=== PATIENT | female | born 1945 | race Two or more races ===

== ENCOUNTER 2022-10-17 21:04 | Emergency (ER) | payer SELFPAY ==
[~2022-10-17] VITALS: Ht 160 cm; Wt 113.4 kg
[2022-10-17 22:49] LABS: HEMATOCRIT 39.4 % (31.2-41.9); MEAN CORPUSCULAR HEMOGLOBIN 29.7 uug (24.7-32.8); MEAN CORPUSCULAR VOLUME 88.5 fL (75.5-95.3); PLATELET COUNT (AUTO) 230 K/uL (179-408)
[2022-10-17 22:59] LABS: CREATININE 1.1 mg/dL (0.6-1.3); POTASSIUM 3.2 mmol/L (3.5-5.1)
[2022-10-17] MEDS ORDERED: POTASSIUM BICARBONATE/CIT AC 25 MEQ TABLET.EFF PO ONE (23:15)
[2022-10-17] MEDS ORDERED: POTASSIUM BICARBONATE/CIT AC 25 MEQ TABLET.EFF ONE (23:32)
[2022-10-17] MEDS ORDERED: MAGNESIUM SULFATE/D5W 300 ML ONE (23:32)
[2022-10-17] MEDS: MAGNESIUM SULFATE/D5W 100 ML IV SCH (23:40)
[2022-10-18] MEDS ORDERED: HYDR-3980 PO (00:06)
[2022-10-18] MEDS: MAGNESIUM SULFATE/D5W 100 ML IV SCH ×2 (00:21→00:59)
--- NOTE | 2022-10-18 00:42 | NUR ---
All 3 grams of Magnesium have been infused and completed via IV LT AC.
--- NOTE | 2022-10-18 00:50 | NUR ---
Patient discharged to home in stable condition. Written and verbal after care instructions given. Patient verbalizes understanding of instructions. Stressed follow up or return to ER for worsening s/s. Patient walked out with steady gait accompainied by daughter.
[2022-10-18 01:04] VITALS: BP 120/87; TEMP 97.5; O2SAT 98
== END 2022-10-18 00:58 | disposition home or self-care (01) ==
LOC: ER 21:04
DX: S09.90XA Unspecified injury of head, initial encounter (principal); E11.9 Type 2 diabetes mellitus without complications; E87.6 Hypokalemia; E83.42 Hypomagnesemia; M25.50 Pain in unspecified joint; F17.210 Nicotine dependence, cigarettes, uncomplicated; Z88.0 Allergy status to penicillin; Z88.5 Allergy status to narcotic agent; Z79.2 Long term (current) use of antibiotics; W18.39XA Other fall on same level, initial encounter; Y93.89 Activity, other specified; Y92.89 Other specified places as the place of occurrence of the external cause; Y99.8 Other external cause status
CPT/HCPCS: 99285; 70450; 96365; 96366; 80048; 83735; 85025; 36415; 72125; J3475; A4663

== ENCOUNTER 2024-02-01 19:25 | Emergency (ER) | payer SELFPAY ==
[~2024-02-01] VITALS: Ht 162.6 cm; Wt 99.8 kg
[~2024-02-01 19:25] MED LIST: HYDR-3980 PO
[2024-02-01] MEDS ORDERED: METRONIDAZOLE 500 MG/NS 100ML 100 ML IV ONE (20:12)
[2024-02-01] MEDS ORDERED: levoFLOXacin 750MG/D5W 150 ML IV ONE (20:12)
[2024-02-01] MEDS ORDERED: ONDANSETRON 4 MG/2 ML VIAL ONE (20:12)
[2024-02-01] MEDS ORDERED: diphenhydrAMINE 50 MG/1 ML VIAL ONE (20:12)
[2024-02-01 20:17] LABS: BASOPHILS # (AUTO) 0.2 K/UL (0.0-0.2); BASOPHILS % (AUTO) 1.7 % (0.0-2.0); EOSINOPHILS # (AUTO) 0.2 K/uL (0.0-0.7); EOSINOPHILS % (AUTO) 2.6 % (0.0-7.0); HEMATOCRIT 36.9 % (31.2-41.9); HEMOGLOBIN 12.6 g/dL (10.9-14.3); LYMPHOCYTES # (AUTO) 2.3 K/uL (0.8-4.8); MEAN CORPUSCULAR HEMOGLOBIN 28.6 uug (24.7-32.8); MEAN CORPUSCULAR HGB CONC 34 g/dL (32.3-35.6); MEAN CORPUSCULAR VOLUME 83.8 fL (75.5-95.3); MONOCYTES # (AUTO) 0.8 K/uL (0.1-1.30); MONOCYTES % (AUTO) 8.7 % (0.0-11.0); NEUTROPHILS # (AUTO) 5.5 K/uL (1.8-8.9); PLATELET COUNT (AUTO) 366 K/uL (179-408); RED BLOOD CELL COUNT(AUTO) 4.41 MIL/uL (3.63-4.92); RED CELL DISTRIBUTION WIDTH 14.4 % (12.3-17.7)
[2024-02-01 20:20] LABS: DIFFERENTIAL COMMENT 1
[2024-02-01] MEDS: ONDANSETRON 4 MG/2 ML VIAL IV ONE (20:24)
[2024-02-01] MEDS: HYDROMORPHONE 1 MG/1 ML DISP.SYRIN IM ONE (20:24)
[2024-02-01] MEDS: diphenhydrAMINE 50 MG/1 ML VIAL IV ONE (20:24)
[2024-02-01] MEDS: IV NORMAL SALINE 1000 ML BAG IV ONE (20:24)
[2024-02-01] MEDS: METRONIDAZOLE 500 MG/NS 100 ML PIGGYBACK IV ONE (20:25)
[2024-02-01 20:31] LABS: ALANINE AMINOTRANSFERASE 26 U/L (14-59); ALBUMIN 2.9 g/dL (3.4-5.0); ALKALINE PHOSPHATASE 129 U/L (50-136); ASPARTATE AMINOTRANSFERASE 16 U/L (15-37); CALCIUM 10.1 mg/dL (8.5-10.1); CARBON DIOXIDE 28 mmol/L (21-32); CHLORIDE 96 mmol/L (98-107); CREATININE 0.8 mg/dL (0.6-1.3); GLUCOSE 147 mg/dL (74-106); LIPASE 50 U/L (16-77); POTASSIUM 3.2 mmol/L (3.5-5.1); SODIUM SERUM 135 mmol/L (136-145); TOTAL PROTEIN, SERUM 7.4 g/dL (6.4-8.2); UREA NITROGEN, BLOOD 8 mg/dL (7-18)
[2024-02-01 20:54] LABS: BILIRUBIN,DIRECT 0.2 mg/dL (0.0-0.2)
[2024-02-01] MEDS: levoFLOXacin 750 MG/D5W 150 ML PIGGYBACK IV ONE (21:41)
[2024-02-01] MEDS: POTASSIUM CHLORIDE 20 MEQ TAB.PRT.SR PO ONE (22:23)
[2024-02-01 23:05] VITALS: BP 138/79; O2SAT 96
== END 2024-02-01 23:05 | disposition left against medical advice (07) ==
LOC: ER 19:25
DX: L02.216 Cutaneous abscess of umbilicus (principal); T81.89XA Other complications of procedures, not elsewhere classified, initial encounter; E66.9 Obesity, unspecified; E11.36 Type 2 diabetes mellitus with diabetic cataract; F17.210 Nicotine dependence, cigarettes, uncomplicated; Z90.49 Acquired absence of other specified parts of digestive tract; E88.09 Other disorders of plasma-protein metabolism, not elsewhere classified; E87.6 Hypokalemia; Z68.37 Body mass index [BMI] 37.0-37.9, adult; Z88.0 Allergy status to penicillin; Z88.5 Allergy status to narcotic agent; Y92.89 Other specified places as the place of occurrence of the external cause
CPT/HCPCS: 99285; 74176; 96365; 96375; 96366; 80076; 80048; 83690; 85025; 85730; 87040 ×2; 96368; 83605; J1200; J1956; J3490; J2405; J1171; J7040; 36415; A4606; A4663